=== PATIENT | female | born 1940 ===

== ENCOUNTER 2019-09-29 11:28 | Inpatient (IN) | payer OTHER ==
[~2019-09-29] VITALS: Ht 152.4 cm; Wt 54.4 kg
[2019-09-29] MEDS ORDERED: TOPROL XL50 M1 PO (11:41)
[2019-09-29] MEDS ORDERED: ASPIR 8181 MG PO (11:41)
[2019-09-29] MEDS ORDERED: LIPITOR20 MG PO (11:41)
--- NOTE | 2019-09-29 11:41 | NUR ---
PACIENTE ALERTA Y ORIENTADA EN UVALDO ADALID ESFERAS, REFIERE DOLOR EN CUADRANTE SUPERIOR KRISTI DESDE VAL.
[2019-09-29] MEDS ORDERED: COZAAR100 MG PO (11:42)
[2019-09-29] MEDS ORDERED: METFORMIN HCL500 M3 PO (11:42)
[2019-09-29] MEDS ORDERED: PROTONIX40 MG PO (11:42)
--- NOTE | 2019-09-29 12:23 | NUR ---
SE LE ORIENTA SOBRE TX. VERBALIZA ENTENDER. SE LE ADMINISTRAN LOS MEDICAMENTOS ANISA ORDEN MEDICA. SE COLECTA MUESTRAS BAJO PROCEDIMIENTO ASEPTICO, LAS CUALES SE ENVIAN A LABORATORIO. PENDIENTE RESULTADOS. SE NOTIFICA CT A/P CON PO CONTRAST. SE ORIENTA A LA PTE SOBRE CT A/P CON CONTRASTE. VERBALIZA ENTENDER. PTE TOLERA TX.
== END 2019-10-02 13:21 | disposition home or self-care (01) | DRG 392 ==
LOC: ER 11:28 → MEDI 17:38 → MEDJ 17:38
PROVIDERS: ADMIT Internal Medicine
PROC: BW21YZZ Computerized Tomography (CT Scan) of Abdomen and Pelvis using Other Contrast (ICD-10-PCS; principal; 2019-09-29)
DX: K57.32 Diverticulitis of large intestine without perforation or abscess without bleeding (principal); R10.32 Left lower quadrant pain; R31.0 Gross hematuria; I70.0 Atherosclerosis of aorta; I11.9 Hypertensive heart disease without heart failure; E11.9 Type 2 diabetes mellitus without complications; Z79.4 Long term (current) use of insulin

== ENCOUNTER 2021-09-09 09:53 | Day surgery (SDC) | payer OTHER ==
[~2021-09-09 09:53] MED LIST: ASPIR 8181 MG PO; COZAAR100 MG PO; LIPITOR20 MG PO; METFORMIN HCL500 M3 PO; PROTONIX40 MG PO; TOPROL XL50 M1 PO
== END 2021-09-09 16:25 | disposition home or self-care (01) ==
LOC: AMB-ENDOS 09:53
PROVIDERS: ATTEND Surgery
DX: K22.81 Esophageal polyp (principal); K63.5 Polyp of colon; K29.50 Unspecified chronic gastritis without bleeding; K57.30 Diverticulosis of large intestine without perforation or abscess without bleeding; E11.9 Type 2 diabetes mellitus without complications